=== PATIENT | male | born 1930 | race Caucasian/White ===

== ENCOUNTER 2017-06-22 14:11 | Inpatient (IN) | payer OTHER ==
[~2017-06-22] VITALS: Ht 180.3 cm; Wt 62.6 kg
[2017-06-22 15:44] LABS: BASOPHILS 0.3 % (0-2); EOSINOPHILS 3.2 % (0-7); HEMATOCRIT 33.1 % (42.0-54.0); HEMOGLOBIN 10.4 g/dL (13.5-17.5); LYMPHOCYTES 14.4 % (15-50); MCH 26.7 pg (26.0-34.0); MCHC 31.4 g/dL (31.0-37.0); MCV 84.9 fL (80.0-100.0); MEAN PLATELET VOLUME 9.8 fL (7.4-10.4); MONOCYTES 7.3 % (2-11); NEUTROPHILS 73.8 % (40-80); PLATELET COUNT 316 10x3/uL (130-400); RDW 14.9 % (11.5-14.5); WBC 13.9 10x3/uL (4.8-10.8)
[2017-06-22 16:06] LABS: ALBUMIN 2.4 g/dL (3.4-5.0); ANION GAP 13.3 mmol/L (8-16); BILIRUBIN - TOTAL 0.33 mg/dL (0.2-1.3); CALCIUM 8.4 mg/dL (8.5-10.1); CREATININE - SERUM 1.5 mg/dL (0.6-1.3); POTASSIUM - SERUM 4.3 mmol/L (3.5-5.1); PROTEIN - SERUM 7.4 g/dL (6.4-8.2)
[2017-06-22 23:59] VITALS: BP 112/60
[2017-06-23 00:46] VITALS: BMI 19.2
[2017-06-23 04:17] VITALS: BP 124/64
[2017-06-23 05:26] LABS: BASOPHILS 0.4 % (0-2); EOSINOPHILS 2.8 % (0-7); HEMATOCRIT 31.8 % (42.0-54.0); HEMOGLOBIN 9.9 g/dL (13.5-17.5); LYMPHOCYTES 11.2 % (15-50); MCH 26.5 pg (26.0-34.0); MCHC 31.1 g/dL (31.0-37.0); MCV 85.3 fL (80.0-100.0); MEAN PLATELET VOLUME 9.9 fL (7.4-10.4); MONOCYTES 7.6 % (2-11); PLATELET COUNT 318 10x3/uL (130-400); RBC 3.73 10x6/uL (4.20-6.10); RDW 14.7 % (11.5-14.5)
[2017-06-23 05:48] LABS: ALBUMIN 2.2 g/dL (3.4-5.0); ANION GAP 11.9 mmol/L (8-16); BILIRUBIN - TOTAL 0.4 mg/dL (0.2-1.3); CALCIUM 8.3 mg/dL (8.5-10.1); CARBON DIOXIDE 26.6 mmol/L (21.0-32.0); CREATININE - SERUM 1.5 mg/dL (0.6-1.3); POTASSIUM - SERUM 4.5 mmol/L (3.5-5.1); PROTEIN - SERUM 6.8 g/dL (6.4-8.2)
[2017-06-23 08:40] VITALS: BP 111/60
[2017-06-23] MEDS ORDERED: ELIQUIS2.5 MG PO (11:13)
[2017-06-23] MEDS ORDERED: COREG 3.1253.125 MG PO (11:13)
[2017-06-23] MEDS ORDERED: NITROSTAT0.4 MG SL (11:15)
[2017-06-23 12:07] VITALS: Ht 180.3 cm; Wt 62.6 kg
[2017-06-23 13:03] VITALS: BP 119/55
[2017-06-23 16:59] VITALS: BP 112/58
[2017-06-23 20:22] VITALS: BP 124/58
[2017-06-24 00:23] VITALS: BP 125/56
[2017-06-24 04:40] VITALS: BP 117/57
[2017-06-24 08:30] VITALS: BP 113/55
[2017-06-24 13:22] VITALS: BP 128/60
[2017-06-24 15:47] LABS: BASOPHILS 0 % (0-2); EOSINOPHILS 0 % (0-7); HEMATOCRIT 30.4 % (42.0-54.0); HEMOGLOBIN 9.4 g/dL (13.5-17.5); IMMATURE GRANULOCYTES 0.7 % (0-5); LYMPHOCYTES 4.4 % (15-50); MCH 26.6 pg (26.0-34.0); MCHC 30.9 g/dL (31.0-37.0); MCV 85.9 fL (80.0-100.0); MEAN PLATELET VOLUME 9.5 fL (7.4-10.4); MONOCYTES 3.8 % (2-11); NEUTROPHILS 91.1 % (40-80); PLATELET COUNT 342 10x3/uL (130-400); RBC 3.54 10x6/uL (4.20-6.10); RDW 14.7 % (11.5-14.5); WBC 25.7 10x3/uL (4.8-10.8)
[2017-06-24 16:25] LABS: ALBUMIN 2.2 g/dL (3.4-5.0); ANION GAP 17.8 mmol/L (8-16); BILIRUBIN - TOTAL 0.22 mg/dL (0.2-1.3); CALCIUM 7.8 mg/dL (8.5-10.1); CREATININE - SERUM 1.5 mg/dL (0.6-1.3); POTASSIUM - SERUM 4.6 mmol/L (3.5-5.1); PROTEIN - SERUM 5.9 g/dL (6.4-8.2)
[2017-06-24 16:26] LABS: CARBON DIOXIDE 19.8 mmol/L (21.0-32.0)
[2017-06-24 17:23] VITALS: BP 112/56
[2017-06-24 21:18] VITALS: BP 131/49
[2017-06-25 04:09] VITALS: BP 126/48
[2017-06-25 05:59] LABS: WBC 23.4 10x3/uL (4.8-10.8)
[2017-06-25 06:00] LABS: BASOPHILS 0 % (0-2); EOSINOPHILS 0 % (0-7); HEMATOCRIT 31.1 % (42.0-54.0); HEMOGLOBIN 9.6 g/dL (13.5-17.5); IMMATURE GRANULOCYTES 0.9 % (0-5); LYMPHOCYTES 2.6 % (15-50); MCH 26.7 pg (26.0-34.0); MCHC 30.9 g/dL (31.0-37.0); MCV 86.4 fL (80.0-100.0); MEAN PLATELET VOLUME 9.8 fL (7.4-10.4); MONOCYTES 0.6 % (2-11); NEUTROPHILS 95.9 % (40-80); PLATELET COUNT 405 10x3/uL (130-400); RDW 14.7 % (11.5-14.5)
[2017-06-25 06:18] LABS: ALBUMIN 2.1 g/dL (3.4-5.0); ANION GAP 13.5 mmol/L (8-16); BILIRUBIN - TOTAL 0.2 mg/dL (0.2-1.3); CALCIUM 7.9 mg/dL (8.5-10.1); CARBON DIOXIDE 22.1 mmol/L (21.0-32.0); CREATININE - SERUM 1.5 mg/dL (0.6-1.3); POTASSIUM - SERUM 4.6 mmol/L (3.5-5.1); PROTEIN - SERUM 6.4 g/dL (6.4-8.2)
[2017-06-25 08:31] VITALS: BP 124/69
[2017-06-25 13:03] VITALS: BP 140/67
[2017-06-25 16:28] VITALS: BP 125/60
[2017-06-25 20:55] VITALS: BP 144/70
[2017-06-25 23:17] VITALS: BP 124/58
[2017-06-26 04:24] VITALS: BP 148/63
[2017-06-26 06:46] LABS: MCH 26.7 pg (26.0-34.0); MCHC 31.3 g/dL (31.0-37.0); MCV 85.6 fL (80.0-100.0); MEAN PLATELET VOLUME 9.8 fL (7.4-10.4); PLATELET COUNT 453 10x3/uL (130-400); RBC 3.74 10x6/uL (4.20-6.10)
[2017-06-26 06:55] LABS: ALBUMIN 2.2 g/dL (3.4-5.0); ANION GAP 12.3 mmol/L (8-16); BILIRUBIN - TOTAL 0.23 mg/dL (0.2-1.3); CALCIUM 8.2 mg/dL (8.5-10.1); CARBON DIOXIDE 26.1 mmol/L (21.0-32.0); CREATININE - SERUM 1.4 mg/dL (0.6-1.3); POTASSIUM - SERUM 4.4 mmol/L (3.5-5.1); PROTEIN - SERUM 6.4 g/dL (6.4-8.2)
[2017-06-26 07:45] LABS: LYMPHOCYTES 4 % (15-50); MONOCYTES 3 % (2-11); NEUTROPHILS 92 % (40-80); PLATELET ESTIMATE INCREASED; ROULEAUX OCC
[2017-06-26 08:10] VITALS: BP 139/70
[2017-06-26 11:57] VITALS: BP 129/69
[2017-06-26] MEDS ORDERED: MUCINEX600 MG PO (13:01)
[2017-06-26] MEDS ORDERED: FLORAJEN3 CAPS460 MG PO (13:01)
[2017-06-26] MEDS ORDERED: TESSALON PERLE100 MG PO (13:01)
[2017-06-26] MEDS ORDERED: PREDNISONE10 MG PO (13:02)
[2017-06-26] MEDS ORDERED: LEVAQUIN500 MG PO (13:02)
[2017-06-26] MEDS ORDERED: VENTOLIN HFA18 GM INH (13:03)
== END 2017-06-26 15:02 | disposition home or self-care (01) | DRG 190 ==
LOC: D.ER 14:11 → D.MS 19:18 → D.EDHOLD 19:18 → D.MS 21:06
PROVIDERS: Family Medicine; Family Medicine Adult Medicine
DX: J44.0 Chronic obstructive pulmonary disease with (acute) lower respiratory infection (principal); J18.1 Lobar pneumonia, unspecified organism; N17.9 Acute kidney failure, unspecified; J44.1 Chronic obstructive pulmonary disease with (acute) exacerbation; D64.9 Anemia, unspecified